=== PATIENT | male | born 1990 | race Caucasian/White ===

== ENCOUNTER 2023-06-27 14:49 | Emergency (ER) | payer OTHER, SELFPAY ==
--- NOTE | ~2023-06-27 | CT_ITS ---
EXAMINATION: CT brain wo con DATE: 06/27/2023 17:16 INDICATION: Head injury. TECHNIQUE: Computed tomography (CT) of the head was performed without intravenous contrast. The mA wa s adjusted according to patient size. Iterative reconstruction technique was employed. The dose-lengt h product was 681.00 mGy-cm. COMPARISON: None FINDINGS: There is no intracranial hemorrhage, acute infarction, or abnormal intracranial mass lesion . The ventricles are normal in size. There is mild mucosal thickening in the paranasal sinuses. The m astoid air cells are normal. There is cerumen in the external auditory canals. The orbits are normal. There is frontal scalp soft tissue swelling IMPRESSION: 1. Normal brain. Reviewed, dictated and finalized at location E. IMPRESSION: 1. Normal brain.
--- NOTE | ~2023-06-27 | CT_ITS ---
EXAMINATION: CT facial & cervical spine wo DATE: 06/27/2023 17:16 INDICATION: Left jaw pain. Neck pain. TECHNIQUE: Computed tomography (CT) of the maxillofacial region and cervical spine was performed with out intravenous contrast. Automated exposure control and iterative reconstruction technique were empl oyed. The dose-length product was 319.10 mGy-cm. COMPARISON: None FINDINGS: MAXILLOFACIAL CT: There is left frontal scalp soft tissue swelling. The orbits are normal. There is mild mucosal thicke russell in the ethmoid sinuses. There is leftward deviation of the nasal septum anteriorly. CERVICAL SPINE CT: There is mild kyphosis of cervical spine. Vertebral body heights and intervertebral disc heights are normal. At C7-T1, there is moderate right and mild left facet joint osteoarthritis. No neural foramin al stenosis or central canal stenosis. IMPRESSION: 1. No fracture. Reviewed, dictated and finalized at location E. IMPRESSION: 1. No fracture.
[2023-06-27 14:50] VITALS: BP 132/83; PULSE 82; RESP 18; TEMP 36.4; O2SAT 99
[2023-06-27] MEDS: oxyCODONE/ACETAMINOPHEN (*CRX) 5-325 MG TABLET 1 TABLET PO (17:05)
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
[2023-06-27 17:48] VITALS: BP 116/80; PULSE 86; RESP 16; TEMP 36.3; O2SAT 100
== END 2023-06-27 17:49 | disposition home or self-care (01) ==
PROVIDERS: Emergency Provider Preventive Medicine Aerospace Medicine
DX: S00.83XA Contusion of other part of head, initial encounter (principal); Z87.891 Personal history of nicotine dependence; X58.XXXA Exposure to other specified factors, initial encounter
CPT/HCPCS: 70450; 70486; 72125; 99284; A9270

== ENCOUNTER 2023-06-29 23:44 | Emergency (ER) | payer OTHER, SELFPAY ==
[2023-06-29 23:47] VITALS: BP 129/90; PULSE 85; RESP 14; TEMP 36.6; O2SAT 98
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
[2023-06-30] MEDS: IBUPROFEN 400 MG TABLET 800 MG PO (02:14)
[2023-06-30] MEDS: HYDROcodone/acetaminophen (*CRX) 5-325 MG TABLET 1 TAB PO (02:14)
[2023-06-30] MEDS: PROCHLORPERAZINE EDISYLATE 10 MG/2 ML VIAL IV PUSH (02:18)
[2023-06-30] MEDS: diphenhydrAMINE HCl INJ 50 MG/ML VIAL 25 MG IV PUSH (02:18)
== END 2023-06-30 02:56 | disposition home or self-care (01) ==
PROVIDERS: Emergency Provider Emergency Medicine
DX: R51.9 Headache, unspecified (principal); R68.84 Jaw pain; Z87.891 Personal history of nicotine dependence
CPT/HCPCS: 96374; 96375; 99284; A9270; J0780; J1200